=== PATIENT | male | born 1970 | race Two or more races ===

== ENCOUNTER 2025-01-02 23:47 | Emergency (ER) | payer MEDICAID, OTHER ==
[~2025-01-02] VITALS: Ht 180.3 cm; Wt 77.3 kg
--- NOTE | 2025-01-03 01:12 | DVH ---
INDICATION: Rule out right-sided inguinal hernia TECHNIQUE: Multiple real-time grayscale transabdominal sonographic images along with color and duplex doppler of the right groin. COMPARISON: None FINDINGS: Targeted ultrasound of the right groin and upper thigh was performed. At the area of concern there is a probable riding on hernia containing fat, trace fluid, and bowel. IMPRESSION: Probable right inguinal hernia containing bowel. If there are acute symptoms suggest confirmation wit h CT
[2025-01-03] MEDS: HYDROcodone-ACET 10/325MG TAB PO ONE (01:40)
[2025-01-03] MEDS: KETOROLAC TROMETH 60MG/2ML VIAL IM ONE (01:40)
[2025-01-03] MEDS ORDERED: IBUP-1455 PO (01:44)
[2025-01-03] MEDS ORDERED: ZOFR4T PO (01:44)
[2025-01-03] MEDS ORDERED: TRAM-626 PO (01:44)
--- NOTE | 2025-01-03 01:45 | ED.PDOC ---
GI ASSESSMENT HPI Comments Patient is a 54-year-old male who arrives the ED today for evaluation of right- sided lower abdomen/pelvic pain that began 2-3 days ago and has continued. 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 Patient can not remember an actual inciting event. Patient denies any fever nausea or vomiting. Patient was hypertensive on arrival. Chief Complaint: Abdominal Pain Time Seen by MD: 23:51 Reviewed Notes: Nurses Notes Allergies: Coded Allergies: No Known Drug Allergy (Verified Allergy, Unknown, 01/02/25) Home Meds Active Scripts Ondansetron Odt 4MG Tab (ZOFRAN PO) 4 Mg Tb, 4 MG PO Q6HP PRN, #20 TAB ODT TAB-DISSOLVE IN MOUTH, THEN SWALLOW Prov:CHRISTIAN HUMPHRIES [facility] 01/03/25 Tramadol HCl (Tramadol HCl) 50 Mg Tab, 50 MG PO Q8HP PRN, #20 TAB Prov:CHRISTIAN HUMPHRIES [facility] 01/03/25 Ibuprofen Micronized (Ibuprofen) 800 Mg Tab, 800 MG PO Q8HP PRN, #20 TAB Prov:CHRISTIAN HUMPHRIES [facility] 01/03/25 Information Source: Patient, Friend Mode of Arrival: Ambulatory Timing: Days Duration: Since onset Prehospital treatment: None Quality: Aching, Sharp, Stabbing Vomitus: None Severity: Moderate Recent: None Recent Hx of: Other (Heavy lifting at work) Pain Location: RLQ, Other (Right inguinal region) Associated sign and symptoms: Abdominal Pain Past Medical History PAST MEDICAL HISTORY: Denies Surgical History: Denies all surgeries Family History Family History: Reviewed,noncontributory to illness, No family hx of Cancer, No family hx of DM, No family hx of Heart nilay, No family hx of HTN, No family hx ofKidney nilay, No family hx of Liver nilay, No family hx of Lung nilay, No family hx of Stroke Social History Smoker: Non-Smoker Alcohol: Denies ETOH Use Drugs: Denies Drug Use Lives In: Home Constitutional: denies: chills, diaphoresis, fatigue, fever, malaise, sweats, weakness, others EENTM: denies: blurred vision, double vision, ear bleeding, ear discharge, ear drainage, ear pain, ear ringing, eye pain, eye redness, hearing loss, mouth pain, mouth swelling, nasal discharge, nose bleeding, nose congestion, nose pain, photophobia, tearing, throat pain, throat swelling, voice changes, others Respiratory: denies: cough, hemoptysis, orthopnea, SOB at rest, shortness of breath, SOB with excertion, stridor, wheezing, others Cardiovascular: denies: chest pain, dizzy spells, diaphoresis, Dyspnea on exertion, edema, irregular heart beat, left arm pain, lightheadedness, palpitations, PND, syncope, others Gastrointestinal: reports: abdominal pain; denies: abdomen distended, blood streaked bowels, constipated, diarrhea, dysphagia, difficulty swallowing, hematemesis, melena, nausea, poor appetite, poor fluid intake, rectal bleeding, rectal pain, vomiting, others Genitourinary: denies: burning, dysuria, flank pain, frequency, hematuria, incontinence, penile discharge, penile sore, pain, testicle pain, testicle swelling, urgency, others Neurological: denies: dizziness, fainting, headache, left sided numbness, left sided weakness, numbness, paresthesia, pre-existing deficit, right sided numbness, right sided weakness, seizure, speech problems, tingling, tremors, weakness, others Musculoskeletal: denies: back pain, gout, joint pain, joint swelling, muscle pain, muscle stiffness, neck pain, others Integumetry: denies: bruises, change in color, change in hair/nails, dryness, laceration, lesions, lumps, rash, wounds, others Allergic/Immunocompromised: denies: Difficulty Healing, Frequent Infections, Hives, Itching, others Hematologic/Lymphatic: denies: anemia, blood clots, easy bleeding, easy bruising, swollen glands, others Endocrine: denies: excessive hunger, excessive sweating, excessive thirst, excessive urination, flushing, intolerance to cold, intolerance to heat, unexplained weight gain, unexplained weight loss, others Psychiatric: denies: anxiety, bipolar disorder, depression, hopeless, panic disorder, schizophrenia, sleepless, suicidal, others Physical Exam General Appearance: Moderate Distress (Due to right inguinal pain concerns.), Normal HEENT: Normal ENT Inspection, Pharynx Normal, TMs Normal Neck: Full Range of Motion, Non-Tender, Normal, Normal Inspection Respiratory: Chest Non-Tender, Lungs Clear, No Accessory Muscle Use, No Respiratory Distress, Normal Breath Sounds Cardiovascular: No Edema, No JVD, No Murmur, No Gallop, Normal Peripheral Pulses, Regular Rate/Rhythm Breast Exam: Deferred Gastrointestinal: Other (Patient reveals a right inguinal bulge that is is not reducible. Tender to palpation. No edema or erythema noted.) Genitalia: Deferred Pelvic: Deferred Rectal: Deferred Extremities: No calf tenderness, Normal capillary refill, Normal range of motion Neurologic: Alert Cerebellar Function: NOT DONE Reflexes: NOT DONE Skin: Dry, Normal Color, Warm Lymphatic: No Adenopathy Was a procedure done? Was a procedure done?: No GI differential Dx Differential Diagnosis: Other (Inguinal hernia, incarcerated hernia, strangulated hernia, urinary tract infection, sepsis) X-Ray, Labs, Meds, VS Vital Signs Date Time Temp Pulse Resp B/P (MAP) Pulse Ox O2 Delivery O2 Flow Rate FiO2 01/03/25 06:19 98.1 78 18 170/109 (129) 98 98.1 01/03/25 03:40 170/109 01/03/25 02:40 170/116 01/03/25 01:43 97.5 91 18 164/111 (128) 96 97.5 01/02/25 23:49 98.7 86 16 173/115 96 98.7 Lab Test 01/03/25 01:41 01/03/25 00:07 Range/Units White Blood Count 7.4 4.4-10.8 10^3/uL Red Blood Count 4.94 4.5-5.90 10^6/uL Hemoglobin 14.4 13.5-17.5 g/dL Hematocrit 42.5 41.0-53.0 % Mean Corpuscular Volume 86.0 80.0-100.0 fL Mean Corpuscular Hemoglobin 29.1 28.0-32.0 pg Mean Corpuscular Hemoglobin Concent 33.8 32.0-36.0 g/dL Red Cell Distribution Width 12.8 11.8-14.3 % Platelet Count 252 140-450 10^3/uL Mean Platelet Volume 7.8 6.9-10.8 fL Neutrophils (%) (Auto) 61.7 37.0-80.0 % Lymphocytes (%) (Auto) 25.6 10.0-50.0 % Monocytes (%) (Auto) 10.4 0.0-12.0 % Eosinophils (%) (Auto) 2.0 0.0-7.0 % Basophils (%) (Auto) 0.3 0.0-2.0 % Neutrophils # (Auto) 4.6 1.6-8.6 10 ^3/uL Lymphocytes # (Auto) 1.9 0.4-5.4 10 ^3/uL Monocytes # (Auto) 0.8 0-1.3 10 ^3/uL Eosinophils # (Auto) 0.1 0-0.8 10 ^3/uL Basophils # (Auto) 0 0-0.2 10 ^3/uL Nucleated Red Blood Cells 0.1 % Sodium Level 143 136-145 mmol/L Potassium Level 4.9 3.5-5.1 mmol/L Chloride Level 103 98-107 mmol/L Carbon Dioxide Level 32 H 20-31 mmol/L Anion Gap 8 5-15 Blood Urea Nitrogen 21 9-23 mg/dL Creatinine 1.04 0.700-1.30 mg/dL Glomerular Filtration Rate Calc 85 >90 mL/min BUN/Creatinine Ratio 20.2 H 10.0-20.0 Serum Glucose 97 74-106 mg/dL Calcium Level 9.7 8.7-10.4 mg/dL Urine Color Yellow Yellow Urine Clarity Clear Clear Urine pH 5.5 5.0-9.0 Urine Specific [place] 1.025 1.001-1.035 Urine Protein Negative Negative Urine Ketones Negative Negative Urine Blood Negative Negative /uL Urine Nitrite Negative Negative Urine Bilirubin Negative Negative Urine Urobilinogen Normal Negative mg/dL Urine Leukocyte Esterase Negative Negative /uL Urine RBC 1 0 - 3 /hpf Urine Microscopic WBC 1 0-3 /HPF Urine Squamous Epithelial Cells None seen <5 /hpf Urine Bacteria None seen None Seen /hpf Urine Hyaline Casts Few 0 - 2 /lpf Urine Mucus Few None Seen Urine Glucose Normal Normal mg/dL Current Medications Medications (Trade) Dose Ordered Sig/Davina Route Start Time Stop Time Status Last Admin Ketorolac Tromethamine (Toradol Injection) 30 mg ONCE ONCE IM 01/03/25 00:30 01/03/25 00:31 DC 01/03/25 01:40 Acetaminophen/ Hydrocodone Bitart ([place] 10/325MG Tab) 1 tab ONCE ONCE PO 01/03/25 00:30 01/03/25 00:31 DC 01/03/25 01:40 Clonidine HCl (Catapres Tablet) 0.2 mg ONCE ONCE PO 01/03/25 01:45 01/03/25 01:46 DC 01/03/25 02:40 X-Ray, Labs, Meds, VS Comment Labs were pending at time of this note. Initial right-sided ultrasound revealed a probable right inguinal hernia containing bowel with the recommendation of CT evaluation. Unable at this time to rule out incarcerated or strangulated. Patient care will be transferred to Dr. Pete for evaluation of laboratories and CT studies when returned. Time of 1ST Reevaluation: 01:42 Reevaluation 1ST: Improved Time of 2ND Reevaluation: 07:25 (The care of this patient was signed out to me by Dr. Pete to specifically follow up on CT scan results and if negative discharge the patient home for outpatient follow up. CT scan shows hiatal hernia. A copy of the ultrasound and CT scan reports were given to the patient at discharge for follow up.) Consultation: PCP, GI Patient Education/Counseling: Diagnosis, Treatment Family Education/Counseling: Diagnosis, Treatment SEPSIS Sepsis Screen Date sepsis recognized/suspect: Jan 02, 2025 Time Sepsis recognized/suspect: 2351 Recent Procedure: No On Antibiotic Therapy: No Respiratory Rate >20: No Heart Rate >90: No Temp<36 C (96.8 F) or >38.3 C: No SBP <90 or MAP <65 mmHG: No New Acute Mental Status Change: No Is the patient on CPAP, BIPAP,: No Physician Orders Pelvic (01/03/25 00:17) Ct Ab Pel With Iv Con Only (01/03/25 01:25) Vital Signs Date Time Temp Pulse Resp B/P (MAP) Pulse Ox O2 Delivery O2 Flow Rate FiO2 01/03/25 06:19 98.1 78 18 170/109 (129) 98 98.1 01/03/25 03:40 170/109 01/03/25 02:40 170/116 01/03/25 01:43 97.5 91 18 164/111 (128) 96 97.5 01/02/25 23:49 98.7 86 16 173/115 96 98.7 Laboratory Tests Test 01/03/25 01:41 White Blood Count 7.4 10^3/uL (4.4-10.8) Medications Medications Dose Ordered Sig/Davina Route Start Time Stop Time Status Last Admin Dose Admin Acetaminophen/ Hydrocodone Bitart 1 tab ONCE ONCE PO 01/03/25 00:30 01/03/25 00:31 DC 01/03/25 01:40 Clonidine HCl 0.2 mg ONCE ONCE PO 01/03/25 01:45 01/03/25 01:46 DC 01/03/25 02:40 Ketorolac Tromethamine 30 mg ONCE ONCE IM 01/03/25 00:30 01/03/25 00:31 DC 01/03/25 01:40 Departure 1 Departure Time of Disposition: 01:42 Impression: Primary Impression: Inguinal hernia Additional Impression: Hiatal hernia Disposition: HOME / SELF CARE / HOMELESS Condition: Stable Additional Instructions: Advise utilizing pain medication as needed for symptomatic relief. Patient should follow up with his primary care provider for discussions related to today's visit and possible surgical consultation. Additional instructions: Please read all instructions provided in this packet carefully. You MUST follow-up with your primary care/family doctor in 1 to 2 days. If you are unable to see your primary care/family doctor, please return to our emergency room for re-assessment and re-evaluation in 1 to 2 days. Return to the emergency room here in our facility or to the nearest ER [facility] if your symptoms change or worsen. CONSULTATIONS: you MUST Follow-up for consultation as soon as possible with: -general surgery You MUST call the consultants office yourself to make an appointment. You may need to arrange that through your insurance and/or your primary/family doctor. If you are unable to see the [employer] sales consultant in 1 to 2 days, you must return to our emergency room (or any other ER of your choice) for re-assessment and re- evaluation. Adequate fluid hydration. Although you have been discharged from the Emergency Department, this does not mean that you have a "clean bill of health". No definitive diagnosis for your symptoms has been made today. It is possible that you are in the process of developing a serious illness. This is why you must return to the ED without fail if any new or worsening symptoms develop. Below is a copy of your radiological report for follow up: [address] [address] Ph: [phone] DIAGNOSTIC IMAGING Diagnostic Imaging Report : [id number] Signed PATIENT: MERISSA HAHN ACCT: [id number] UNIT: [id number] : 1970 LOC: ER ROOM / BED: / AGE / SEX: 54 / M ADM STATUS: REG ER SERVICE [id number] ORDERING PHYSICIAN: CHRISTIAN HUMPHRIES PAC PROCEDURE(s): ABPLIV - CT AB PEL WITH IV CON ONLY REASON: Rule out incarcerated/strangulated right inguinal hernia ORDER NUMBER(s): [id number], ACCESSION NUMBER(s): [id number] Exam: CT CT AB PEL WITH IV CON ONLY History: Rule out incarcerated/strangulated right inguinal hernia COMPARISON: US PELVIC on DOS: 01/03/25 Technique: Multidetector spiral CT of the abdomen and pelvis was performed from lung bases to pubic symphysis. Intravenous contrast was administered during this examination. Portal venous imaging was obtained. Axial, coronal and sagittal multiplanar reformats were performed by the technologist on a separate workstation. Radiation Dose : 1. Abdomen/Pelvis: CTDIvol 9.74 mGy, DLP 565.0 mGy*cm. CONTRAST: Type of contrast: Omniscan 300 Contrast injected: 100 ml Findings: Lung Bases: No acute or significant lung base finding. Normal heart size. No pleural or pericardial effusion. Liver: The liver is normal in size. No focal lesions. Normal hepatic vascular enhancement. Gallbladder and Biliary Tree: Unremarkable Spleen: Unremarkable Pancreas: The pancreas is normal in appearance without focal lesions or abnormal enhancement. Adrenal Glands: Unremarkable Kidneys: No hydronephrosis. Bladder: Unremarkable Bowel: Moderate hiatal hernia. The stomach is grossly normal in appearance. Diverticulosis coli without CT evidence of acute diverticulitis. Small bowel and colon are otherwise normal in caliber and distribution. The appendix is not visualized; however, no secondary findings of acute appendicitis identified. Ascites: Absent Lymphadenopathy: No mesenteric, retroperitoneal or periportal lymphadenopathy. Abdominal Wall and Mesentery: Unremarkable. Vasculature: The visualized abdominal aorta is normal in size and caliber. Atherosclerotic vascular calcifications. Abdominal and pelvic vessels demonstrate normal enhancement. Pelvic Organs: Unremarkable Musculoskeletal: No aggressive focal bony lesions, acute fractures or dislocation. IMPRESSION: 1. No acute abdominal or pelvic finding. 2. Moderate hiatal hernia. 3. Diverticulosis coli without CT evidence of acute diverticulitis. Radiation optimization: All CT scans at this facility use at least one of these dose optimization techniques: automated exposure control mA and/or kV adjustment per patient size (includes targeted exams where dose is matched to clinical indication) or iterative reconstruction. ATED BY: DANE ROBERSON MD DICTATED DATE/TIME: 01/03/25651 SIGNED BY: DANE ROBERSON MD SIGNED DATE/TIME: 01/03/25651 CC: [place] [id number] Ph: [phone] DIAGNOSTIC IMAGING Diagnostic Imaging Report : [id number] Signed PATIENT: MERISSA HAHN ACCT: [id number] UNIT: [id number] : 1970 LOC: ER ROOM / BED: / AGE / SEX: 54 / M ADM STATUS: REG ER SERVICE ORDERING PHYSICIAN: CHRISTIAN HUMPHRIES PAC PROCEDURE(s): PELUS - PELVIC REASON: Rule out right-sided inguinal hernia ORDER NUMBER(s): [id number], ACCESSION NUMBER(s): [id number] INDICATION: Rule out right-sided inguinal hernia TECHNIQUE: Multiple real-time grayscale transabdominal sonographic images along with color and duplex doppler of the right groin. COMPARISON: None FINDINGS: Targeted ultrasound of the right groin and upper thigh was performed. At the area of concern there is a probable riding on hernia containing fat, trace fluid, and bowel. IMPRESSION: Probable right inguinal hernia containing bowel. If there are acute symptoms suggest confirmation with CT ATED BY: RAN ALBERTO MD DICTATED DATE/TIME: 01/03/25108 SIGNED BY: RAN ALBERTO MD SIGNED DATE/TIME: 01/03/25108 CC: e-Prescriptions Ondansetron Odt 4MG Tab (ZOFRAN PO) 4 Mg Tb 4 MG PO Q6HP PRN, #20 TAB ODT TAB-DISSOLVE IN MOUTH, THEN SWALLOW Prov: CHRISTIAN HUMPHRIES PAC 01/03/25 Tramadol HCl (Tramadol HCl) 50 Mg Tab 50 MG PO Q8HP PRN, #20 TAB Prov: CHRISTIAN HUMPHRIES PAC 01/03/25 Ibuprofen Micronized (Ibuprofen) 800 Mg Tab 800 MG PO Q8HP PRN, #20 TAB Prov: CHRISTIAN HUMPHRIES PAC 01/03/25 Discharged With: Self, Friend Critical Care Note Critical Care Time?: No Stability Stability form required: No Heart Score Heart Score: Heart Score Response (Comments) Value History N/A 0 EKG N/A 0 Age N/A 0 Risk Factors N/A 0 Troponin N/A 0 Total 0 CHRISTIAN HUMPHRIES PAC Jan 03, 2025 01:45 CORINA RIZVI DO Jan 03, 2025 07:26
[2025-01-03 01:56] LABS: Hematocrit 42.5 % (41.0-53.0); Hemoglobin 14.4 g/dL (13.5-17.5); Mean Corpuscular Hemoglobin 29.1 pg (28.0-32.0); Mean Corpuscular Volume 86.0 fL (80.0-100.0); Nucleated Red Blood Cells % 0.1 %
[2025-01-03 02:07] LABS: Chloride 103 mmol/L (98-107); Potassium 4.9 mmol/L (3.5-5.1); Sodium 143 mmol/L (136-145)
[2025-01-03 02:08] LABS: Anion Gap 8 (5-15); Calcium 9.7 mg/dL (8.7-10.4)
[2025-01-03 02:11] LABS: Carbon Dioxide 32 mmol/L (20-31)
[2025-01-03 02:13] LABS: BUN/Creatinine Ratio 20.2 (10.0-20.0); Blood Urea Nitrogen 21 mg/dL (9-23); Glucose 97 mg/dL (74-106)
[2025-01-03 02:26] LABS: Urine Protein, UAD Negative (Negative)
[2025-01-03] MEDS: IOHEXOL 300 MG/ML 100ML BOTTLE IJ ONE (06:14)
[2025-01-03 06:19] VITALS: BP 170/109; PULSE 78; RESP 18; TEMP 98.1; O2SAT 98
--- NOTE | 2025-01-03 06:55 | DVH ---
Exam: CT CT AB PEL WITH IV CON ONLY History: Rule out incarcerated/strangulated right inguinal hernia COMPARISON: US PELVIC on DOS: 01/03/25 Technique: Multidetector spiral CT of the abdomen and pelvis was performed from lung bases to pubic s ymphysis. Intravenous contrast was administered during this examination. Portal venous imaging was o btained. Axial, coronal and sagittal multiplanar reformats were performed by the technologist on a [employer] workstation. Radiation Dose : 1. Abdomen/Pelvis: CTDIvol 9.74 mGy, DLP 565.0 mGy*cm. CONTRAST: Type of contrast: Omniscan 300 Contrast injected: 100 ml Findings: Lung Bases: No acute or significant lung base finding. Normal heart size. No pleural or pericardial effusion. Liver: The liver is normal in size. No focal lesions. Normal hepatic vascular enhancement. Gallbladder and Biliary Tree: Unremarkable Spleen: Unremarkable Pancreas: The pancreas is normal in appearance without focal lesions or abnormal enhancement. Adrenal Glands: Unremarkable Kidneys: No hydronephrosis. Bladder: Unremarkable Bowel: Moderate hiatal hernia. The stomach is grossly normal in appearance. Diverticulosis coli witho ut CT evidence of acute diverticulitis. Small bowel and colon are otherwise normal in caliber and dis tribution. The appendix is not visualized; however, no secondary findings of acute appendicitis ident ified. Ascites: Absent Lymphadenopathy: No mesenteric, retroperitoneal or periportal lymphadenopathy. Abdominal Wall and Mesentery: Unremarkable. Vasculature: The visualized abdominal aorta is normal in size and caliber. Atherosclerotic vascular c alcifications. Abdominal and pelvic vessels demonstrate normal enhancement. Pelvic Organs: Unremarkable Musculoskeletal: No aggressive focal bony lesions, acute fractures or dislocation. IMPRESSION: 1. No acute abdominal or pelvic finding. 2. Moderate hiatal hernia. 3. Diverticulosis coli without CT evidence of acute diverticulitis. Radiation optimization: All CT scans at this facility use at least one of these dose optimization evelyn hniques: automated exposure control mA and/or kV adjustment per patient size (includes targeted exam s where dose is matched to clinical indication) or iterative reconstruction.
== END 2025-01-03 07:26 | disposition home or self-care (01) ==
LOC: ER 23:47
DX: K40.90 Unilateral inguinal hernia, without obstruction or gangrene, not specified as recurrent (principal); K44.9 Diaphragmatic hernia without obstruction or gangrene; Z79.899 Other long term (current) drug therapy
CPT/HCPCS: 36415; 74177; 76856; 80048; 81001; 85025; 96372; 99285; J1885; Q9967